=== PATIENT | female | born 1985 | race Caucasian/White ===

== ENCOUNTER 2023-07-22 09:55 | Emergency (ER) | payer MEDICAID ==
[~2023-07-22] VITALS: Ht 167.6 cm; Wt 68.0 kg
[2023-07-22 10:00] VITALS: BP_SYST 121; PULSE 80; RESP 20; TEMP 98.3; O2SAT 98
[2023-07-22] MEDS ORDERED: IBUP-1969 PO (10:30)
[2023-07-22] MEDS ORDERED: NEOM10SO7 LEFT EAR (10:30)
[2023-07-22 10:40] VITALS: BP_SYST 121; PULSE 80; RESP 20; TEMP 98.3; O2SAT 98
== END 2023-07-22 10:41 | disposition home or self-care (01) ==
LOC: SED 09:55
DX: H60.92 Unspecified otitis externa, left ear (principal); Z79.899 Other long term (current) drug therapy
CPT/HCPCS: 99283